=== PATIENT | male | born 1985 | race Caucasian/White ===

== ENCOUNTER 2016-07-28 18:05 | Emergency (ER) | payer MEDICAID, OTHER ==
[2016-07-28 18:20] VITALS: BP 133/71
--- NOTE | 2016-07-28 18:43 | UC ---
Rectal Pain HPI - HPI Summary HPI Summary: The patient comes in today for: 1. Rectal pain: Onset: He has had painless swelling for the last two weeks. But, over the last day, it has become painful. Palliative/provocative: Tumeric (ingested and as a paste) has helped in the past. Quality: Irritation. Region: Rectal/anal. Severity: 0/10 Time: Constant. Associated symptoms: Bleeding: None recently. In the past he has had bright red blood in the past usually after a difficult BM. Previous disease: He states that he has had 2 thrombosed hemorrhoids over the last few days. * - History Of Current Complaint Chief Complaint: UCGeneralIllness Stated Complaint: PERSONAL Time Seen by Provider: 07/28/16 18:30 Hx Obtained From: Patient - Allergies/Home Medications Allergies/Adverse Reactions: Allergies Allergy/AdvReac Type Severity Reaction Status Date / Time No Known Allergies Allergy Verified 07/28/16 18:20 PMH/Surg Hx/FS Hx/Imm Hx Previously Healthy: No - Anal fissures, and hx of hemorrhoids. Endocrine History Of: Denies: Diabetes, Thyroid Disease, Hyperthyroidism, Hypothyroidism, Dyslipidemia Cardiovascular History Of: Denies: Cardiac Disorders, Hypertension, Pacemaker/ICD, Myocardial Infarction , Congestive Heart Failure, Atrial Fibrillation, Deep Vein Thrombosis, Bleeding Disorders Respiratory History Of: Denies: COPD, Asthma, Bronchitis, Pneumonia, Pulmonary Embolism GI/ History Of: Denies: Gastroesophageal Reflux, Ulcer, Gastrointestinal Bleed, Gall Bladder Disease, Kidney Stones, Diverticulitis, Renal Disease, Urosepsis Neurological History Of: Denies: TIA, CVA, Dementia, Seizures, Migraine Psychological History Of: Denies: Anxiety, Depression, Bipolar Disorder, Schizophrenia, Post Traumatic Stress Disorder Cancer History Of: Denies: Lung Cancer, Colorectal Cancer, Breast Cancer, Prostate Cancer, Cervical Cancer Other History Of: Negative For: HIV, Hepatitis B, Hepatitis C, Anticoagulant Therapy - Surgical History Surgical History: None - Family History Known Family History: Positive: Hypertension Negative: Cardiac Disease - Social History Occupation: Unemployed Alcohol Use: Occasionally Substance Use Type: Marijuana Substance Use Comment - Amount & Last Used: occasional Smoking Status (MU): Never Smoked Tobacco - Immunization History Most Recent Influenza Vaccination: none Review of Systems Constitutional: Negative Skin: Negative Eyes: Negative ENT: Negative Respiratory: Negative Cardiovascular: Negative Gastrointestinal: Negative Genitourinary: Negative All Other Systems Reviewed And Are Negative: Yes Physical Exam Triage Information Reviewed: Yes Appearance: Well-Appearing, No Pain Distress, Well-Nourished Vital Signs: Initial Vital Signs Temp 98.8 F 07/28/16 18:16 Pulse 58 07/28/16 18:16 Resp 16 07/28/16 18:16 BP 133/71 07/28/16 18:16 Pulse Ox 100 07/28/16 18:16 Vital Signs Reviewed: Yes Eyes: Positive: Conjunctiva Clear. Negative: Discharge ENT: Positive: Hearing grossly normal. Negative: Pharyngeal erythema, Nasal congestion, Nasal drainage, TM bulging, TM dull, TM red, Tonsillar swelling, Tonsillar exudate Dental: Negative: Gross Decay/Caries @, Dental Fracture @ Neck: Positive: Supple, Nontender, No Lymphadenopathy. Negative: Nuchal Rigidity Respiratory: Positive: Chest non-tender, Lungs clear, No respiratory distress, No accessory muscle use. Negative: Crackles, Wheezing Cardiovascular: Positive: RRR, No Murmur Abdomen Description: Positive: Nontender, No Organomegaly, Soft. Negative: Distended, Guarding Musculoskeletal: Positive: Strength Intact, ROM Intact, No Edema Neurological: Positive: Alert, Muscle Tone Normal Psychological: Positive: Age Appropriate Behavior, Consolable Skin: Negative: rashes, breakdown UC Physical Exam Vital Signs On Initial Exam: Initial Vitals Temp Pulse Resp BP Pulse Ox 98.8 F 58 16 133/71 100 07/28/16 18:16 07/28/16 18:16 07/28/16 18:16 07/28/16 18:16 07/28/16 18:16 - Rectal Exam Rectal Exam: Other - External: AT the 3 o' clock position, there is a pea- sized mass. It is minimally tender, and there is no edema, or redness or ecchymosis. Digital exam: No tenderness in the sphincter area--except where the pea-sized mass was. Prostate: Normal in size, shape and consistency. There were no masses. Sphincter: Increased tone. Rectal Pain Course/Dx - Differential Dx/Diagnosis Differential Diagnosis/HQI/PQRI: Hemorrhoid(s), Perirectal Abscess, Rectal Fissure Provider Diagnoses: Fibrotic hemorrhoid. No active thrombosed hemorrhoid. Discharge - Discharge Plan Condition: Stable Disposition: HOME Patient Education Materials: Hemorrhoids (ED) Referrals: No Primary Care Phys,NOPCP [Primary Care Provider] - 1 Week (Please see your primary care provider in about a week. If you don't have a primary care provider, please reference the included sheet of local provider. If you get worse, please be seen sooner.) Additional Instructions: If you don't do well and get back to normal with the ointment given to you as a prescription, please see your primary care provider or surgeon for further evaluation.
== END 2016-07-28 19:20 | disposition home or self-care (01) ==
LOC: UCCORT 18:05
DX: K64.8 Other hemorrhoids (principal); F12.90 Cannabis use, unspecified, uncomplicated
CPT/HCPCS: 99202; G0463

== ENCOUNTER 2016-10-27 18:49 | Emergency (ER) | payer OTHER ==
[2016-10-27 19:30] VITALS: BP 136/72
--- NOTE | 2016-10-27 19:48 | UC ---
Hand/Wrist HPI - HPI Summary HPI Summary: The patient comes in today for: 1. Dog bite to the left hand: Onset: Yesterday around noon. 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 Quality: Ache, tightness Region: Back of the left hand. Severity: 4/10 Time: Constant. Associated symptoms: Event: He stated that he startled a dog and it bite him on the back of the left hand. There was only one break in the skin and it was at the MP joint of the left hand, middle finger. He only treated it with ice packs. He put triple antibiotic ointment. Initially, he had a cotton ball with rubbing alcohol initially. Last tetanus: He does not know. The dog is a kept dog by his girlfriend and it has had all its shots. * - History Of Current Complaint Chief Complaint: UCBiteInjury Stated Complaint: DOG BITE LEFT HAND Time Seen by Provider: 10/27/16 19:19 Hx Obtained From: Patient - Allergies/Home Medications Allergies/Adverse Reactions: Allergies Allergy/AdvReac Type Severity Reaction Status Date / Time No Known Allergies Allergy Verified 10/27/16 19:30 PMH/Surg Hx/FS Hx/Imm Hx Previously Healthy: Yes Other Endocrine History: NO DM, thyroid dz Other Cardiovascular History: No HTN, heart disease. Other Respiratory History: No asthma, or hemoptysis Other GI/ History: No GERD or ulcers, or kidney failure. Other Psychological History: No anxiety or depression. Other Cancer History: No cancer Other History Of: Negative For: HIV, Hepatitis B, Hepatitis C, Anticoagulant Therapy - Surgical History Surgical History: None - Family History Known Family History: Positive: Hypertension Negative: Cardiac Disease - Social History Occupation: Employed Full-time Alcohol Use: Occasionally Substance Use Type: Marijuana Substance Use Comment - Amount & Last Used: occasional Smoking Status (MU): Never Smoked Tobacco - Immunization History Most Recent Influenza Vaccination: none Most Recent Tetanus Shot: unknown Review of Systems Constitutional: Negative Skin: Rash Eyes: Negative ENT: Negative Respiratory: Negative Cardiovascular: Negative Gastrointestinal: Negative Genitourinary: Negative All Other Systems Reviewed And Are Negative: Yes Physical Exam Triage Information Reviewed: Yes Appearance: Well-Appearing, No Pain Distress, Well-Nourished Vital Signs: Initial Vital Signs Temp 100.3 F 05/31/17 19:12 Pulse 71 10/27/16 19:12 Resp 15 10/27/16 19:12 BP 136/72 10/27/16 19:12 Pulse Ox 99 10/27/16 19:12 Vital Signs Reviewed: Yes Eyes: Positive: Conjunctiva Clear. Negative: Discharge ENT: Positive: Hearing grossly normal. Negative: Pharyngeal erythema, Nasal congestion, Nasal drainage, TM bulging, TM dull, TM red, Tonsillar swelling, Tonsillar exudate Dental: Negative: Gross Decay/Caries @, Dental Fracture @ Neck: Positive: Supple, Nontender, No Lymphadenopathy. Negative: Nuchal Rigidity Respiratory: Positive: Lungs clear, No respiratory distress, No accessory muscle use. Negative: Rhonchi, Wheezing Cardiovascular: Positive: RRR, No Murmur Abdomen Description: Positive: Nontender, No Organomegaly, Soft. Negative: Distended, Guarding Musculoskeletal: Positive: Strength Intact, ROM Limited @, Edema @, Other: - Left hand: the dorsum of his hand is erythematous and red for most of the back of his hand. The single puncture wound of the dog bite is at the dorsum of the MP joint of the 3rd finger. He has full extension and almost full flexion. There is a tightness which interferes with full flexion. There is no axial manipulation of the 3rd MP joint. There is slight redness of the palm of the hand, under the 3rd MP joint, but no tenderness. There is no tenderness to palpation of the 3rd MP joint--just tightness to the back of his hand. Neurological: Positive: Alert, Muscle Tone Normal Psychological: Positive: Age Appropriate Behavior, Consolable Skin: Negative: rashes, breakdown Hand/Wrist Course/Dx - Course Course Of Treatment: The patient was told of my concern about his infection and told him about the treatment options. At this time he agrees to the IM ceftriaxone and outpatient augmentin. He will follow up with me in 1-2 days as he does not have a primary care provider. - Differential Dx/Diagnosis Provider Diagnoses: dog bite, left hand. Discharge - Discharge Plan Condition: Stable Disposition: HOME Patient Education Materials: Animal Bite (ED) Referrals: No Primary Care Phys,NOPCP [Primary Care Provider] - (Please see your primary care provider in about a week. If you don't have a primary care provider, please reference the included sheet of local provider. If you get worse, please be seen sooner.)
[2016-10-27] MEDS ORDERED: cefTRIAXone VIAL(*) 1,000 MG VIAL IM ONE (19:59)
[2016-10-27] MEDS ORDERED: Lidocaine 1% MPF* 2 ML VIAL INJ ONE (20:00)
[2016-10-27] MEDS ORDERED: Tetan/Diph/Pertus SYR(Tdap)* 0.5 ML SYR(BOOSTRIX) use SYR IM ONE (20:07)
--- NOTE | 2016-10-28 16:36 | UC ---
Progress - Progress Note Progress Note: The patient was called today. He states that the redness and swelling of his affected hand is much better. There is no tenderness of the MP joint of the 3rd finger of the affected hand. He states that he has no fever and his hand mobility is improved. He was told since he is doing well, he does not need to see me tomorrow for re-evaluation. HE only needs to be seen if he does not continue to improve.
== END 2016-10-27 20:30 | disposition home or self-care (01) ==
LOC: UCCORT 18:49
DX: S61.432A Puncture wound without foreign body of left hand, initial encounter (principal); W54.0XXA Bitten by dog, initial encounter; Y93.9 Activity, unspecified; Y92.9 Unspecified place or not applicable; Z23 Encounter for immunization
CPT/HCPCS: 90471; 90715; 96372; 99212; G0463; J0696

== ENCOUNTER 2017-06-03 16:56 | Emergency (ER) | payer OTHER ==
--- NOTE | 2017-06-03 17:23 | UC ---
HPI Febrile Illness - HPI Summary HPI Summary: 31 year old male presents with complains of fever, back pain and cough. - History of Current Complaint Time Seen by Provider: 06/03/17 17:22 Hx Obtained From: Patient Onset/Duration: Started Days Ago Timing: Constant Initial Severity: Moderate Current Severity: Moderate Aggravating Factors: Nothing Alleviating Factors: Nothing Associated Signs and Symptoms: Negative - Allergy/Home Medications Allergies/Adverse Reactions: Allergies Allergy/AdvReac Type Severity Reaction Status Date / Time No Known Allergies Allergy Verified 06/03/17 17:37 PMH/Surg Hx/FS Hx/Imm Hx Previously Healthy: Yes Other History Of: Negative For: HIV, Hepatitis B, Hepatitis C, Anticoagulant Therapy - Surgical History Surgical History: None - Family History Known Family History: Positive: Hypertension Negative: Cardiac Disease - Social History Alcohol Use: Occasionally Substance Use Type: Marijuana Substance Use Comment - Amount & Last Used: occasional Smoking Status (MU): Never Smoked Tobacco - Immunization History Most Recent Influenza Vaccination: none Most Recent Tetanus Shot: unknown Review of Systems Constitutional: Fever, Chills Skin: Negative Eyes: Negative ENT: Ear Ache, Nasal Discharge, Sinus Congestion, Sinus Pain/Tenderness Respiratory: Negative Cardiovascular: Negative Gastrointestinal: Negative Genitourinary: Negative Motor: Negative Neurovascular: Negative Musculoskeletal: Negative Neurological: Negative Psychological: Negative All Other Systems Reviewed And Are Negative: Yes Physical Exam Triage Information Reviewed: Yes Vital Signs Reviewed: Yes Eye Exam: Normal ENT: Positive: Pharyngeal erythema, Nasal congestion, Nasal drainage, Sinus tenderness Dental Exam: Normal Neck exam: Normal Neck: Positive: 1 Respiratory Exam: Normal Cardiovascular Exam: Normal Abdominal Exam: Normal Musculoskeletal Exam: Normal Neurological Exam: Normal Psychological Exam: Normal Skin Exam: Normal Course/Dx - Diagnoses Clinic Provider Diagnoses: influenza a. fever Discharge - Discharge Plan Condition: Stable Disposition: HOME Prescriptions: LoraTADine TAB(NF) [Claritin 10 MG TAB(NF)] 10 mg PO DAILY #30 tab Oseltamivir CAP* [Tamiflu CAP*] 75 mg PO BID #10 cap Promethazine-Dm [Promethazine/Dextromethor 6.25-15 mg/5Ml] 1 teasp PO Q8H PRN # 120 ml PRN Reason: Cough Patient Education Materials: Influenza (ED) Referrals: No Primary Care Phys,NOPCP [Primary Care Provider] -
[2017-06-03 17:37] VITALS: BP 168/72
== END 2017-06-03 18:09 | disposition home or self-care (01) ==
LOC: UCCORT 16:56
DX: J09.X2 Influenza due to identified novel influenza A virus with other respiratory manifestations (principal); R50.9 Fever, unspecified; Z72.89 Other problems related to lifestyle; F12.90 Cannabis use, unspecified, uncomplicated
CPT/HCPCS: 87502; 99212; G0463